=== PATIENT | female | born 1975 | race Caucasian/White ===

== ENCOUNTER 2019-06-08 17:47 | Emergency (ER) | payer OTHER ==
[~2019-06-08] VITALS: Ht 152.4 cm; Wt 70.3 kg
[2019-06-08 18:06] VITALS: BP 139/83
--- NOTE | 2019-06-08 18:10 | NUR ---
PT AMBULATED TO BED
[2019-06-08] MEDS ORDERED: KETOROLAC 60 MG/2 ML VIAL IM ONE (18:15)
--- NOTE | 2019-06-08 18:30 | NUR ---
43 Y/O PATIENT PRESENTS TODAY WITH LEFT KNEE PAIN AND BUCKLING X TODAY. DENIES INJURY, FALLS OR TRAUMA TO THE KNEE. 8 PAIN. STATES SHE WAS TOLD SHE HAS ARTHRITIS, BUT LATELY HAS BEEN HAVING MORE SYMPTOMS WITH FEELING LIKE THE KNEE WOULD "COME FROM UNDER ME". PMH: GALLBLADDER REMOVAL, DM NKDA
--- NOTE | 2019-06-08 19:11 | NUR ---
RECEIVED REPORT FROM LIZ KHAN. ASSUMED CARE AT THIS TIME.
--- NOTE | 2019-06-08 20:08 | NUR ---
APPLIED KNEE IMMOBILIZER TO PT'S LEFT KNEE, PROVIDED CRUTCHES AND ONE ON ONE INSTRUCTION ON PROPER USE. PT SHOWED PROPER USE OF CRUTCHES.
[2019-06-08 20:09] VITALS: BP 119/73
--- NOTE | 2019-06-08 20:10 | NUR ---
Patient discharged with v/s stable. Written and verbal after care instructions given and explained. Patient alert, oriented and verbalized understanding of instructions. Ambulatory with crutches. All questions addressed prior to discharge. ID band removed. Patient advised to follow up with PMD. Rx of ibuprofen given. Patient educated on indication of medication including possible reaction and side effects. Opportunity to ask questions provided and answered.
== END 2019-06-08 20:09 | disposition home or self-care (01) ==
LOC: MED 17:47
DX: M25.562 Pain in left knee (principal); G89.29 Other chronic pain; E11.9 Type 2 diabetes mellitus without complications; Z90.49 Acquired absence of other specified parts of digestive tract
CPT/HCPCS: 29505; 96372; 99283; J1885

== ENCOUNTER 2020-01-06 19:23 | Emergency (ER) | payer OTHER ==
[~2020-01-06] VITALS: Ht 152.4 cm; Wt 79.6 kg
[2020-01-06 19:40] VITALS: BP 146/81
--- NOTE | 2020-01-06 19:52 | NUR ---
44 Y/O FEMALE C/O R SIDED VAGINAL ABCESS X2 DAYS. PT STATES 10/10 THROBBING PAIN. DENIES OTC MEDS. NO DISCHARGE OR DRAINAGE NOTED. TENDER TO TOUCH. MED HX: DM2 RX: INSULIN PEN, PIOGLITAZONE NKA
--- NOTE | 2020-01-06 19:53 | NUR ---
ERMD AT BEDSIDE EVALUATING PT
[2020-01-06] MEDS ORDERED: LIDOCAINE 2% 1000 MG/50 ML VIAL INJ ONE (20:00)
[2020-01-06] MEDS ORDERED: MORPHINE SULFATE 2 MG/ML SYR IM ONE (20:00)
[2020-01-06 20:43] VITALS: BP 146/81
--- NOTE | 2020-01-06 20:43 | NUR ---
Patient discharged with v/s stable. Written and verbal after care instructions given and explained. Patient alert, oriented and verbalized understanding of instructions. Ambulatory with steady gait. All questions addressed prior to discharge. ID band removed. Patient advised to follow up with PMD. Rx of BACTRIM, TRAMADOL HYDROCHLORIDE, KEFLEX AND MOTRIN given. Patient educated on indication of medication including possible reaction and side effects. Opportunity to ask questions provided and answered.
== END 2020-01-06 20:43 | disposition home or self-care (01) ==
LOC: MED 19:23
DX: N75.0 Cyst of Bartholin's gland (principal); E11.9 Type 2 diabetes mellitus without complications; Z90.49 Acquired absence of other specified parts of digestive tract
CPT/HCPCS: 56420; 96372; 99284; J2001; J2270; 99283

== ENCOUNTER 2020-01-09 16:41 | Emergency (ER) | payer OTHER ==
[~2020-01-09] VITALS: Ht 152.4 cm; Wt 79.4 kg
[2020-01-09 16:55] VITALS: BP 129/78
--- NOTE | 2020-01-09 17:01 | NUR ---
PT AMBULATED TO LOBBY
--- NOTE | 2020-01-09 17:50 | NUR ---
Pt ambulated to bed 11 with steady gait
--- NOTE | 2020-01-09 17:53 | NUR ---
44 y/o female from home presents to ED for removal of packing from abscess. Pt states she had abscess drained from groin 3 days ago and was told to return in 3 days for removal of packing. Pt states pain began today and took Tramadol with no relief of pain. 8/10, worse with ambulation. RR even and unlabored, skin warm, dry, and intact. medhx: DM
[2020-01-09] MEDS ORDERED: MORPHINE SULFATE 2 MG/ML SYR IM ONE (18:05)
--- NOTE | 2020-01-09 18:18 | NUR ---
Female Communication Clerk accompanied female patient for Pelvic Exam.
[2020-01-09 18:32] VITALS: BP 129/78
--- NOTE | 2020-01-09 18:32 | NUR ---
Patient discharged with v/s stable. Written and verbal after care instructions given and explained. Patient alert, oriented and verbalized understanding of instructions. Ambulatory with steady gait. All questions addressed prior to discharge. ID band removed. Patient advised to follow up with PMD. Rx of Nystatin cream given. Patient educated on indication of medication including possible reaction and side effects. Opportunity to ask questions provided and answered.
== END 2020-01-09 18:32 | disposition home or self-care (01) ==
LOC: MED 16:41
DX: N75.0 Cyst of Bartholin's gland (principal); E11.9 Type 2 diabetes mellitus without complications; Z48.00 Encounter for change or removal of nonsurgical wound dressing
CPT/HCPCS: 96372; 99283; J2270

== ENCOUNTER 2020-01-12 10:41 | Emergency (ER) | payer OTHER ==
[~2020-01-12] VITALS: Ht 167.6 cm; Wt 77.1 kg
[2020-01-12 10:44] VITALS: BP 125/86
--- NOTE | 2020-01-12 10:55 | NUR ---
44 y/o female presents to ED for recheck, had bartholins cyst re-packed 3 days ago and packing fell out this morning. States 5/10 aching pain to former incision site. States minimal drainage from site. Afebrile upon arrival. Skin warm, dry, intact. VSS medhx: DM
--- NOTE | 2020-01-12 11:21 | NUR ---
Dr Goode at bedside examining pt
[2020-01-12 11:59] VITALS: BP 136/84
--- NOTE | 2020-01-12 12:00 | NUR ---
Patient discharged with v/s stable. Written and verbal after care instructions given and explained. Patient alert, oriented and verbalized understanding of instructions. Ambulatory with steady gait. All questions addressed prior to discharge. ID band removed. Patient advised to follow up with PMD. Rx of Diflucan 150mg given. Patient educated on indication of medication including possible reaction and side effects. Opportunity to ask questions provided and answered.
== END 2020-01-12 12:00 | disposition home or self-care (01) ==
LOC: MED 10:41
DX: N75.0 Cyst of Bartholin's gland (principal); E11.9 Type 2 diabetes mellitus without complications; Z48.00 Encounter for change or removal of nonsurgical wound dressing
CPT/HCPCS: 99283

== ENCOUNTER 2022-03-12 08:25 | Day surgery (SDC) | payer OTHER ==
[~2022-03-12] VITALS: Ht 152.4 cm; Wt 68.0 kg
[~2022-03-12 08:25] MED LIST: MORPHINE SULFATE 4 MG/ML SYR ONE
[2022-03-12] MEDS ORDERED: diphenhydrAMINE 50 MG/ML VIAL ONE (09:20)
[2022-03-12] MEDS ORDERED: MIDAZOLAM 2 MG/2 ML VIAL ONE (09:21)
[2022-03-12] MEDS ORDERED: fentaNYL citrate 0.05 MG/ML VIAL ONE (09:21)
[2022-03-12] MEDS ORDERED: LIDOCAINE 2% 100 MG/5 ML UJET TP ONE (09:21)
[2022-03-12] MEDS ORDERED: MIDAZOLAM 2 MG/2 ML VIAL IVP ONE (13:55)
[2022-03-12] MEDS ORDERED: fentaNYL citrate 0.05 MG/ML VIAL IVP ONE (13:55)
== END 2022-03-12 11:08 | disposition home or self-care (01) ==
LOC: MDS 08:25 → MMU 08:25 → MDS 11:08
PROVIDERS: ATTEND Internal Medicine Gastroenterology
DX: Z12.11 Encounter for screening for malignant neoplasm of colon (principal); K63.5 Polyp of colon; K57.30 Diverticulosis of large intestine without perforation or abscess without bleeding; E11.9 Type 2 diabetes mellitus without complications; Z87.891 Personal history of nicotine dependence; F32.A Depression, unspecified; F41.9 Anxiety disorder, unspecified; M10.9 Gout, unspecified; Z80.8 Family history of malignant neoplasm of other organs or systems; Z90.49 Acquired absence of other specified parts of digestive tract; Z20.822 Contact with and (suspected) exposure to COVID-19
CPT/HCPCS: 45385; 87426; J2250; J2270; J3010; J1200